=== PATIENT | male | born 1955 | race Caucasian/White ===

== ENCOUNTER 2018-12-21 18:09 | Emergency (ER) | payer MEDICARE, OTHER ==
[2018-12-21] MEDS ORDERED: Famotidine 20 MG/2 ML SDV IVPUSH ONE (18:14)
[2018-12-21] MEDS ORDERED: Sodium Chloride 0.9% 10 ML Syringe FLUSH PRN (18:14)
--- NOTE | 2018-12-21 18:14 | EDM.PDOC ---
ED HPI GENERAL MEDICAL PROBLEM - General Chief Complaint: General Stated Complaint: SOB, left, lower abd pain Time Seen by Provider: 12/21/18 18:14 Source of Information: Reports: Patient, EMS, EMS Notes Reviewed, Old Records ( [facility] EMR. No paper hospital chart available.) History Limitations: Reports: No Limitations - History of Present Illness INITIAL COMMENTS - FREE TEXT/NARRATIVE: The patient was brought to the emergency room via ambulance with basic EMT transport for evaluation of sudden onset progressive dyspnea, nausea, and weakness with additional 5/10 nonspecific left lower quadrant abdominal/side pain with the patient wanting to lie on the floor near his bed secondary to this discomfort. He relates his discomfort secondary to questionable muscle pull when lying down on the floor? He denies any fall, seizure activity, syncope , injury, etc. He has a somewhat historian secondary to his current discomfort and distress. Note that the patient did have a left hemicolectomy on 12/14/18 at the [facility] in [facility] with normal bowel movement earlier this morning. He denies any gross hematuria, colic, or other UTI symptoms. The patient denies any chest pain/pressure, heart flutter, dizziness, orthostasis, orthopnea, diaphoresis, paresthesias, recent decreased exercise tolerance, or any other anginal-type symptoms although the patient was extremely diaphoretic on arrival to this facility. He was also hypoxic with an O2 sat of 73% initially as recorded by the coil wrapper with initial O2 by mask and subsequent reduction of therapy per the patient's request to 4 L/m by nasal cannula prior to arrival. The patient also denies any recent fever, cough, wheezing, etc.. No history of recent headaches, visual changes, diplopia, change in mental status, or other change in neurological status. Onset: Today, Gradual Onset Date: 12/21/18 Onset Time: 12:00 Duration: Constant, Getting Worse Location: Reports: Abdomen. Denies: Head, Face, Neck, Chest, Back, Pelvis, Upper Extremity, Left, Upper Extremity, Right, Lower Extremity, Left, Lower Extremity, Right, Radiates to Quality: Reports: Ache, Stabbing, Throbbing Severity: Moderate Improves with: Reports: None Worsens with: Reports: None Context: Reports: Other (As above). Denies: Sick Contact, Trauma Associated Symptoms: Reports: Nausea/Vomiting, Shortness of Breath. 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: Reports: Oxygen Left Abdominal Pain Score (Numeric/FACES): 5 - Related Data Allergies Allergy/AdvReac Type Severity Reaction Status Date / Time No Known Drug Allergies Allergy Cannot Verified 12/21/18 18:12 Remember Home Meds: Home Meds Cholecalciferol (Vitamin D3) [Vitamin D3] 2,000 unit PO DAILY 12/06/18 [History] Dextroamphetamine [Dextrostat] 5 mg PO ASDIRECTED 12/06/18 [History] Ferrous Sulfate 325 mg PO DAILY 12/06/18 [History] Fish Oil/[place]-3 Fatty Acids [Fish Oil 1,000 MG] 1,000 mg PO BID 12/06/18 [ History] Hydrocodone/Acetaminophen [Hydrocodon-Acetaminophn 10-325] 2 tab PO Q6H PRN 06/16 [History] Insulin Glarg,Human.Rec.Analog [Lantus] 50 unit SUBCUT BEDTIME 12/06/18 [History ] Lisinopril 2.5 mg PO DAILY 12/06/18 [History] NIFEdipine [Nifedipine ER] 30 mg PO DAILY 12/06/18 [History] Potassium Chloride 20 meq PO DAILY 12/06/18 [History] Propranolol HCl [Inderal LA] 160 mg PO DAILY 12/06/18 [History] SUMAtriptan [Imitrex] 25 mg PO DAILY PRN 12/06/18 [History] Simvastatin [Zocor] 40 mg PO BEDTIME 12/06/18 [History] Topiramate [Topiramate ER] 150 mg PO DAILY 12/06/18 [History] Triamterene/Hydrochlorothiazid [Triamterene-HCTZ 37.5-25 MG] 1 tab PO DAILY 06/16 [History] Venlafaxine [Effexor XR] 150 mg PO BEDTIME 12/06/18 [History] metFORMIN [Glucophage] 500 mg PO QID 12/06/18 [History] Past Medical History HEENT History: Reports: Hard of Hearing, Impaired Vision, Other (See Below) Other HEENT History: Patient wears glasses. Cardiovascular History: Reports: Hypertension Respiratory History: Reports: COPD, Intubation, Previous, Sleep Apnea, Other ( See Below). Denies: Intubation, Difficult Other Respiratory History: COPD by chest x-ray Gastrointestinal History: Reports: Colon Polyp, Other (See Below) Other Gastrointestinal History: Colon cancer diagnosed as below Genitourinary History: Reports: None Musculoskeletal History: Reports: Arthritis, Back Pain, Chronic, Fracture, Osteoarthritis Neurological History: Reports: Brain Injury, Concussion, Headaches, Chronic, Head Trauma, Migraines Psychiatric History: Reports: Anxiety, Depression, PTSD Endocrine/Metabolic History: Reports: Diabetes, Type II, Obesity/BMI 30+. Denies: IDDM Hematologic History: Reports: Anemia Oncologic (Cancer) History: Reports: Colon, Lung, Other (See Below) Other Oncologic History: Newly diagnosed left sided colon cancer on 12/14/18 Dermatologic History: Reports: None - Infectious Disease History Infectious Disease History: Reports: None - Past Surgical History Cardiovascular Surgical History: Reports: None Respiratory Surgical History: Reports: Lung Resection GI Surgical History: Reports: Colon, Colonoscopy, Other (See Below) Other GI Surgeries/Procedures: ? Left sided hemicolectomy secondary to colon cancer at the [facility] on 12/14/18 Male Surgical History: Reports: None Endocrine Surgical History: Reports: None Neurological Surgical History: Reports: None Musculoskeletal Surgical History: Reports: Shoulder Surgery Oncologic Surgical History: Reports: Lobectomy Social & Family History - Family History Family Medical History: Noncontributory - Caffeine Use Caffeine Use: Reports: Tea ED ROS GENERAL - Review of Systems Review Of Systems: ROS reveals no pertinent complaints other than HPI. ED EXAM, GENERAL - Physical Exam Exam: See Below Exam Limited By: Other (Patient discomfort and obesity) General Appearance: Alert, Anxious (Moderate), Moderate Distress Eye Exam: Bilateral Eye: EOMI, Normal Inspection (No nystagmus. Patient has glasses with him), PERRL Ears: Normal External Exam, Normal Canal, Hearing Grossly Normal, Normal TMs Nose: Normal Mucosa, No Blood, Clear Rhinorrhea Throat/Mouth: Normal Lips, Normal Teeth (Occasional missing teeth with additional caries but no abscess), Normal Gums, Normal Oropharynx, Normal Voice , No Airway Compromise. No: Dysphagia, Perioral Cyanosis Head: Atraumatic, Normocephalic. No: Facial Swelling, Facial Tenderness, Sinus Tenderness Neck: Normal Inspection, Supple, Non-Tender, Full Range of Motion. No: Carotid Bruit, Lymphadenopathy (L), Lymphadenopathy (R), Thyromegaly Respiratory/Chest: No Accessory Muscle Use, Chest Non-Tender, Respiratory Distress (Mild), Rales (Mild diffuse bilateral rales mostly in the bases ). No : Retractions Cardiovascular: Normal Peripheral Pulses, No Gallop, No JVD, No Murmur, No Rub, Tachycardia (Regular rhythm). No: No Edema (Dependent edema as below) Peripheral Pulses: 2+: Brachial (R), Radial (L), Dorsalis Pedis (L), Dorsalis Pedis (R) GI/Abdominal: Normal Bowel Sounds, No Distention, No Abnormal Bruit, No Mass, Pelvis Stable, Tender (Mild left lower quadrant abdominal pain), Other (Obese. Large midline incision intact with no evidence of dehiscence or local signs of infection). No: Guarding, Rigid, Rebound (Male) Exam: Deferred Rectal (Males) Exam: Deferred Back Exam: Normal Inspection, Full Range of Motion. No: CVA Tenderness (L), CVA Tenderness (R), Muscle Spasm Extremities: Normal Range of Motion, Non-Tender, Normal Capillary Refill, Pedal Edema (+1 bilateral pitting pedal/pretibial edema). No: Shaunna's Sign Neurological: Alert, Oriented, CN II-XII Intact, Normal Cognition, Normal Gait, Normal Reflexes (Negative Babinski's), No Motor/Sensory Deficits Psychiatric: Anxious (Moderate) Skin Exam: No Rash, Diaphoretic, Tattoo(s), Wound/Incision (Abdominal incision as above). No: Ecchymosis, Jaundice, Pallor, Petechiae Lymphatic: No Adenopathy EKG INTERPRETATION EKG Date: 12/21/18 Time: 18:43 Rhythm: Other (Sinus tachycardia) Rate (Beats/Min): 113 [place]: Normal (Neutral cardiac axis) P-Wave: Present QRS: Normal (0.09 seconds) ST-T: Other (Nonspecific ST changes with mild T-wave inversion in leads V1V3, 3 , and aVF) QT: Normal WA/PQ Interval: 0.14 seconds with no delta waves noted. Noisy baseline. Pulmonary hypertension by EKG. Comparison: NA - No Prior EKG EKG Interpretation Comments: 1. Possible anteroinferior cardiac ischemia 2. Sinus tachycardia 3. Short WA interval 4. Pulmonary Hypertension by EKG Course - Vital Signs Last Recorded V/S: Last Vital Signs Temp 36.4 C 12/21/18 18:13 Pulse 119 H 12/21/18 18:45 Resp 30 H 12/21/18 18:45 BP 89/62 L 12/21/18 18:45 Pulse Ox 94 L 12/21/18 18:45 Vital Signs - 24 hr 12/21/18 12/21/18 12/21/18 18:13 18:15 18:30 Temperature [ 36.4 C Oral] Pulse, 110 H 117 H Peripheral [ Left Brachial] Respiratory 40 H 25 H Rate Blood Pressure 123/62 83/54 L [Left Upper Arm ] O2 Sat by Pulse 93 L 94 L Oximetry O2 Sat by Pulse 91 L Oximetry [ Nasal Cannula] O2 Sat by Pulse 81 L Oximetry [Room Air] 12/21/18 12/21/18 12/21/18 18:45 19:45 20:00 Temperature [ Oral] Pulse, 119 H 112 H 109 H Peripheral [ Left Brachial] Respiratory 30 H 29 H Rate Blood Pressure 89/62 L 137/76 [Left Upper Arm ] O2 Sat by Pulse 94 L 91 L 96 Oximetry O2 Sat by Pulse Oximetry [ Nasal Cannula] O2 Sat by Pulse Oximetry [Room Air] 12/21/18 12/21/18 12/21/18 20:15 20:30 20:45 Temperature [ Oral] Pulse, 110 H 110 H 111 H Peripheral [ Left Brachial] Respiratory 30 H 30 H 30 H Rate Blood Pressure 119/67 134/68 [Left Upper Arm ] O2 Sat by Pulse 97 97 Oximetry O2 Sat by Pulse Oximetry [ Nasal Cannula] O2 Sat by Pulse Oximetry [Room Air] 12/21/18 21:15 Temperature [ Oral] Pulse, 112 H Peripheral [ Left Brachial] Respiratory 29 H Rate Blood Pressure [Left Upper Arm ] O2 Sat by Pulse 97 Oximetry O2 Sat by Pulse Oximetry [ Nasal Cannula] O2 Sat by Pulse Oximetry [Room Air] - Orders/Labs/Meds Orders: Active Orders 24 hr Category Date Time Status Cardiac Monitoring [RC] . DIRECTED Care 12/21/18 18:15 Active EKG Documentation Completion [RC] ASDIRECTED Care 12/21/18 18:15 Active Torres Catheter Insertion [Insert Urinary Catheter] [OM. Care 12/21/18 20:45 Ordered PC] Q24H Oxygen Therapy, ED [RC] CONTINUOUS Care 12/21/18 18:15 Active Peripheral IV Care [RC] . DIRECTED Care 12/21/18 18:15 Active Pulse Oximetry [RC] CONTINUOUS Care 12/21/18 18:15 Active Up With Assistance [RC] PFP Care 12/21/18 18:15 Active Urinary Catheter Assessment [RC] ASDIRECTED Care 12/21/18 20:44 Active Vital Signs [RC] PFP Care 12/21/18 18:15 Active Nothing per Oral Now Diet [DIET] Diet 12/21/18 Breakfast Active Abdomen Series w Chest 1V [CR] Routine Exams 12/21/18 18:17 Taken CULTURE BLOOD [BC] Stat Lab 12/21/18 19:40 Received CULTURE BLOOD [BC] Stat Lab 12/21/18 20:37 Received CULTURE URINE [RM] Routine Lab 12/21/18 20:59 Received Sodium Chloride 0.9% [Saline Flush] Med 12/21/18 18:14 Active 10 ml FLUSH ASDIRECTED PRN cefTRIAXone [Rocephin] Med 12/21/18 20:15 Active 2 gm IVPUSH Q24H Blood Culture x2 Reflex Set [OM.PC] Urgent Oth 12/21/18 20:28 Ordered Obtain Past Medical Record [OM.PC] Urgent Oth 12/21/18 18:15 Active Peripheral IV Insertion Adult [OM.PC] Stat Oth 12/21/18 18:15 Ordered Resuscitation Status Stat Resus Stat 12/21/18 18:14 Ordered Medication Orders Ceftriaxone Sodium (Rocephin) 2 gm IVPUSH Q24H KAVON Last Admin: 12/21/18 20:20 Dose: 2 gm Sodium Chloride (Saline Flush) 10 ml FLUSH ASDIRECTED PRN PRN Reason: Keep Vein Open Labs: Laboratory Tests 12/21/18 12/21/18 12/21/18 Range/Units 19:40 19:40 19:40 WBC 15.1 H (4.0-10.2) K/uL RBC 4.39 (4.33-5.41) M/uL Hgb 11.8 L (13.1-16.8) g/dL Hct 37.6 L (39.0-49.0) % MCV 85.6 (84.0-98.0) fL MCH 26.9 L (28.2-33.3) pg MCHC 31.4 L (31.7-36.0) g/dL RDW 15.5 H (11.2-14.1) % Plt Count 575 H (150-350) K/uL Neut % (Auto) 72.9 (45.0-80.0) % Lymph % (Auto) 19.5 (10.0-50.0) % [place] % (Auto) 7.2 (2.0-14.0) % Eos % (Auto) 0.1 (0.0-5.0) % Baso % (Auto) 0.3 (0.0-2.0) % Neut # (Auto) 11.01 H (1.40-7.00) K/uL Lymph # (Auto) 2.95 (0.50-3.50) K/uL [place] # (Auto) 1.09 H (0.00-1.00) K/uL Eos # (Auto) 0.01 (0.00-0.50) K/uL Baso # (Auto) 0.04 (0.00-0.20) K/uL PT 12.8 H (9.5-12.0) SEC INR 1.2 APTT 32.5 H (21.0-31.3) SEC D-Dimer, Quantitative 3230 H (0-400) ng/mL Sodium (136-145) mmol/L Potassium (3.5-5.1) mmol/L Chloride (98-107) mmol/L Carbon Dioxide (21.0-32.0) mmol/L BUN (7-18) mg/dL Creatinine (0.51-1.17) mg/dL Est Cr Clr Drug Dosing mL/min Estimated GFR (MDRD) mL/min Glucose (74-106) mg/dL Lactic Acid (0.4-2.0) mmol/L Uric Acid (2.6-7.2) mg/dL Calcium (8.5-10.1) mg/dL Magnesium (1.8-2.4) mg/dL Total Bilirubin (0.2-1.0) mg/dL AST (15-37) U/L ALT (12-78) U/L Alkaline Phosphatase (46-116) IU/L Creatine Kinase (26-308) U/L Creatine Kinase Index (0.0-2.5) % CK-MB (CK-2) (0.00-3.60) ng/mL Troponin I (0.000-0.056) ng/mL NT-Pro-B Natriuret Pep (0-125) pg/mL Total Protein (6.4-8.2) g/dL Albumin (3.4-5.0) g/dL TSH, Ultra Sensitive (0.358-3.740) mIU/mL Specimen Type Urine Color Urine Appearance Urine pH (5.0-9.0) Ur Specific [place] (1.005-1.030) Urine Protein (NEGATIVE) mg/dL Urine Glucose (UA) (NEGATIVE) mg/dL Urine Ketones (NEGATIVE) mg/dL Urine Occult Blood (NEGATIVE) Urine Nitrite (NEGATIVE) Urine Bilirubin (NEGATIVE) Urine Urobilinogen (0.2-1.0) E.U./dL Ur Leukocyte Esterase (NEGATIVE) Urine RBC /HPF Urine WBC /HPF Ur Epithelial Cells /LPF Urine Bacteria (NONE TO FEW) /HPF Hyaline Casts (NEGATIVE) /LPF 12/21/18 12/21/18 12/21/18 Range/Units 19:40 19:40 20:59 WBC (4.0-10.2) K/uL RBC (4.33-5.41) M/uL Hgb (13.1-16.8) g/dL Hct (39.0-49.0) % MCV (84.0-98.0) fL MCH (28.2-33.3) pg MCHC (31.7-36.0) g/dL RDW (11.2-14.1) % Plt Count (150-350) K/uL Neut % (Auto) (45.0-80.0) % Lymph % (Auto) (10.0-50.0) % [place] % (Auto) (2.0-14.0) % Eos % (Auto) (0.0-5.0) % Baso % (Auto) (0.0-2.0) % Neut # (Auto) (1.40-7.00) K/uL Lymph # (Auto) (0.50-3.50) K/uL [place] # (Auto) (0.00-1.00) K/uL Eos # (Auto) (0.00-0.50) K/uL Baso # (Auto) (0.00-0.20) K/uL PT (9.5-12.0) SEC INR APTT (21.0-31.3) SEC D-Dimer, Quantitative (0-400) ng/mL Sodium 144 (136-145) mmol/L Potassium 3.2 L (3.5-5.1) mmol/L Chloride 107 (98-107) mmol/L Carbon Dioxide 16.8 L (21.0-32.0) mmol/L BUN 29 H (7-18) mg/dL Creatinine 1.17 (0.51-1.17) mg/dL Est Cr Clr Drug Dosing 62.52 mL/min Estimated GFR (MDRD) > 60 mL/min Glucose 105 (74-106) mg/dL Lactic Acid 7.7 H (0.4-2.0) mmol/L Uric Acid 6.5 (2.6-7.2) mg/dL Calcium 10.2 H (8.5-10.1) mg/dL Magnesium 1.4 L (1.8-2.4) mg/dL Total Bilirubin 0.3 (0.2-1.0) mg/dL AST 57 H (15-37) U/L ALT 39 (12-78) U/L Alkaline Phosphatase 83 (46-116) IU/L Creatine Kinase 156 (26-308) U/L Creatine Kinase Index 3.1 H (0.0-2.5) % CK-MB (CK-2) 4.80 H* (0.00-3.60) ng/mL Troponin I 0.016 (0.000-0.056) ng/mL NT-Pro-B Natriuret Pep 7503 H (0-125) pg/mL Total Protein 6.4 (6.4-8.2) g/dL Albumin 1.9 L (3.4-5.0) g/dL TSH, Ultra Sensitive 2.904 (0.358-3.740) mIU/mL Specimen Type Urincath Urine Color Dark yellow Urine Appearance Clear Urine pH 5.5 (5.0-9.0) Ur Specific [place] 1.020 (1.005-1.030) Urine Protein 30 H (NEGATIVE) mg/dL Urine Glucose (UA) Negative (NEGATIVE) mg/dL Urine Ketones Trace H (NEGATIVE) mg/dL Urine Occult Blood Negative (NEGATIVE) Urine Nitrite Negative (NEGATIVE) Urine Bilirubin Small H (NEGATIVE) Urine Urobilinogen 0.2 (0.2-1.0) E.U./dL Ur Leukocyte Esterase Negative (NEGATIVE) Urine RBC 0-5 /HPF Urine WBC 0-5 /HPF Ur Epithelial Cells Few /LPF Urine Bacteria Few (NONE TO FEW) /HPF Hyaline Casts Few H (NEGATIVE) /LPF Blood Cultures 2 were collected. Urine specimen set up for culture and sensitivity. Meds: Medications Generic Name Dose Route Start Last Admin Trade Name Freq PRN Reason Stop Dose Admin Ceftriaxone Sodium 2 gm 12/21/18 20:15 12/21/18 20:20 Rocephin IVPUSH 2 gm Q24H KAVON Administration Sodium Chloride 10 ml 12/21/18 18:14 Saline Flush FLUSH ASDIRECTED PRN Keep Vein Open Discontinued Medications Generic Name Dose Route Start Last Admin Trade Name Freq PRN Reason Stop Dose Admin Famotidine 40 mg 12/21/18 18:14 12/21/18 19:50 Pepcid IVPUSH 12/21/18 18:15 40 mg ONETIME ONE Administration Hydromorphone HCl 1 mg 12/21/18 21:08 12/21/18 21:17 Dilaudid IVPUSH 12/21/18 21:09 1 mg ONETIME ONE Administration Lactated Ringer's 1,000 mls @ 999 mls/hr 12/21/18 20:12 12/21/18 20:27 Ringers, Lactated IV 12/21/18 21:12 999 mls/hr .BOLUS ONE Administration Metronidazole 500 mg/ Premix 100 mls @ 100 mls/hr 12/21/18 20:30 12/21/18 21: 20 IV 12/21/18 21:29 100 mls/hr ONETIME ONE Administration Ondansetron HCl 4 mg 12/21/18 19:15 12/21/18 19:50 Zofran IVPUSH 12/21/18 19:16 4 mg ONETIME ONE Administration Ondansetron HCl 4 mg 12/21/18 21:07 12/21/18 21:16 Zofran IVPUSH 12/21/18 21:08 4 mg ONETIME ONE Administration - Radiology Interpretation Free Text/Narrative:: Bounty Trapper showed sinus tachycardia with heart rate in the 110s with no ectopy or arrhythmia Acute abdominal x-rays shows cardiomegaly, mild centralized CHF, and mild COPD changes with no pulmonary infiltrates or pneumothorax. Moderate diffuse stool however not in the rectal vault. Nonspecific bowel gaseous pattern somewhat increased in nature with no fluid levels, ileus, or definite obstruction. Moderate free air likely secondary to recent open abdominal surgery. Elevated right hemidiaphragm Departure - Departure Time of Disposition: 21:35 Disposition: DC/Tfer to [facility] 02 Condition: Serious Clinical Impression: Obesity determined by physical examination, Hypokalemia, Hypoalbuminemia, Hypomagnesemia, D-dimer, elevated, Hypercalcemia Sepsis Qualifiers: Sepsis type: sepsis due to unspecified organism Qualified Code(s): A41.9 - Sepsis, unspecified organism CHF (congestive heart failure) Qualifiers: Heart failure type: unspecified Heart failure chronicity: unspecified Qualified Code(s): I50.9 - Heart failure, unspecified Colon cancer Qualifiers: Colon location: unspecified part of colon Qualified Code(s): C18.9 - Malignant neoplasm of colon, unspecified COPD (chronic obstructive pulmonary disease) Qualifiers: COPD type: emphysema Emphysema type: panlobular Qualified Code(s): J43.1 - Panlobular emphysema Osteoarthritis Qualifiers: Osteoarthritis location: multiple joints Osteoarthritis type: primary Qualified Code(s): M15.0 - Primary generalized (osteo)arthritis Anemia Qualifiers: Anemia type: unspecified type Qualified Code(s): D64.9 - Anemia, unspecified - Discharge Information *PRESCRIPTION DRUG MONITORING PROGRAM REVIEWED*: Not Applicable *COPY OF PRESCRIPTION DRUG MONITORING REPORT IN PATIENT RAFA: Not Applicable Referrals: PCP,Unknown [Primary Care Provider] - Forms: ED Department Discharge, Interfacility Transfer EMTALA - Problem List & Annotations (1) Sepsis SNOMED Code(s): 39179119 Code(s): A41.9 - SEPSIS, UNSPECIFIED ORGANISM Status: Acute Priority: High Onset Date: 12/21/18 Annotation/Comment:: Severely elevated lactic acid level with clinical evidence of sepsis. Note recent abdominal surgery on . Blood cultures 2 were collected. Urine specimen also collected for culture and sensitivitycatheterized specimen. Patient was treated aggressively in the emergency room including initial 2 g IV push of Rocephin with IV Flagyl to be continued in route. IV lactated Ringer's bolus was also initiated with caution secondary to his CHF. No additional norepinephrine infusion was required with stable vital signs at time of transfer. Initial telephone consultation with the [facility] in [place] with , hospitalist, at 20:25 hours and then at 20:40 hours with no beds available in their facility and authorization for hospital transfer to another facility received from that physician. Subsequent telephone consultation with [facility] in [place] at 20:40 hours with subsequent telephone consultation with Dr. Nascimento, hot mix operator, and Dr. Braswell, general surgeon, at 20:55 hours with both parties agreeing to accept the patient for direct admission. Note that the patient was too obese to perform a planned CTA of the chest to rule out PE and CT of the abdomen and pelvis with these evaluations to be conducted immediately upon patient's arrival to [facility]. No further treatment recommendations given. Note leukocytosis. Qualifiers: Sepsis type: sepsis due to unspecified organism Qualified Code(s): A41.9 - Sepsis, unspecified organism (2) CHF (congestive heart failure) SNOMED Code(s): 06415499 Code(s): I50.9 - HEART FAILURE, UNSPECIFIED Status: Acute Priority: High Onset Date: 12/21/18 Annotation/Comment:: No chest pain or anginal planes despite elevated CK-MB and CK index with normal CK. Only mild change of troponin I, which is still normal, secondary to his CHF. Secondary to his sepsis and borderline hypotension Lasix therapy was not initiated in the emergency room IV fluids initiated as above with caution secondary to his sepsis. Recommend standard rule out PR orders, cardiology consultation, etc. OTC EKG changes consistent with possible developing anteroinferior ischemia. The accepting providers agree with delay of initiation of IV heparin therapy for now secondary to absence of anginal type symptoms and recent surgery as above. Note mild LFTs elevation likely secondary to CHF and possible fatty liver. Qualifiers: Heart failure type: unspecified Heart failure chronicity: unspecified Qualified Code(s): I50.9 - Heart failure, unspecified (3) Anemia SNOMED Code(s): 776646946 Code(s): D64.9 - ANEMIA, UNSPECIFIED Status: Acute Priority: Medium Onset Date: 12/21/18 Annotation/Comment:: No evidence of significant acute GI bleed despite above symptoms and recent surgery as above. Observe closely by accepting providers. Qualifiers: Anemia type: unspecified type Qualified Code(s): D64.9 - Anemia, unspecified (4) COPD (chronic obstructive pulmonary disease) SNOMED Code(s): 56081088 Code(s): J44.9 - CHRONIC OBSTRUCTIVE PULMONARY DISEASE, UNSPECIFIED Status : Chronic Priority: Medium Annotation/Comment:: No recent fever or bronchitic type symptoms. Qualifiers: COPD type: emphysema Emphysema type: panlobular Qualified Code(s): J43.1 - Panlobular emphysema (5) Colon cancer SNOMED Code(s): 820735988 Code(s): C18.9 - MALIGNANT NEOPLASM OF COLON, UNSPECIFIED Status: Acute Priority: High Onset Date: 12/14/18 Annotation/Comment:: Note recent surgery on 12/14/18. Possible secondary postoperative sepsis. CT scan recommended as above. Qualifiers: Colon location: unspecified part of colon Qualified Code(s): C18.9 - Malignant neoplasm of colon, unspecified (6) D-dimer, elevated SNOMED Code(s): 344565033 Code(s): R79.89 - OTHER SPECIFIED ABNORMAL FINDINGS OF BLOOD CHEMISTRY Status: Acute Priority: High Onset Date: 12/21/18 Annotation/Comment:: Possible postoperative PE. CT of the chest recommended as above. (7) Hypoalbuminemia SNOMED Code(s): 039895927 Code(s): E88.09 - OTH DISORDERS OF PLASMA-PROTEIN METABOLISM, NEC Status: Acute Priority: Medium Onset Date: 12/21/18 Annotation/Comment:: Observe for now (8) Hypokalemia SNOMED Code(s): 96903614 Code(s): E87.6 - HYPOKALEMIA Status: Acute Priority: Medium Onset Date : 12/21/18 Annotation/Comment:: IV lactated Ringer's initiated as above. (9) Hypomagnesemia SNOMED Code(s): 553028442 Code(s): E83.42 - HYPOMAGNESEMIA Status: Acute Priority: Medium Onset Date: 12/21/18 Annotation/Comment:: Consider magnesium oxide supplementation. (10) Obesity determined by physical examination SNOMED Code(s): 473620045 Code(s): E66.9 - OBESITY, UNSPECIFIED Status: Acute Priority: High Annotation/Comment:: Obesity affecting further evaluation in this facility as above. (11) Osteoarthritis SNOMED Code(s): 276041076 Code(s): M19.90 - UNSPECIFIED OSTEOARTHRITIS, UNSPECIFIED SITE Status: Chronic Priority: Medium Annotation/Comment:: Stable by history with no recent fall or injury. Qualifiers: Osteoarthritis location: multiple joints Osteoarthritis type: primary Qualified Code(s): M15.0 - Primary generalized (osteo)arthritis (12) Hypercalcemia SNOMED Code(s): 46185243 Code(s): E83.52 - HYPERCALCEMIA Status: Acute Priority: High Onset Date : 12/21/18 Annotation/Comment:: Consider whole body bone scan in light of recent diagnosis of colon cancer to rule out metastases. - Problem List Review Problem List Initiated/Reviewed/Updated: Yes - My Orders Last 24 Hours: My Active Orders 12/21/18 18:14 Sodium Chloride 0.9% [Saline Flush] 10 ml FLUSH ASDIRECTED PRN Resuscitation Status Stat 12/21/18 18:15 Cardiac Monitoring [RC] . DIRECTED EKG Documentation Completion [RC] ASDIRECTED Oxygen Therapy, ED [RC] CONTINUOUS Peripheral IV Care [RC] . DIRECTED Pulse Oximetry [RC] CONTINUOUS Up With Assistance [RC] PFP Vital Signs [RC] PFP Obtain Past Medical Record [OM.PC] Urgent Peripheral IV Insertion Adult [OM.PC] Stat 12/21/18 18:17 Abdomen Series w Chest 1V [CR] Routine 12/21/18 19:40 CULTURE BLOOD [BC] Stat 12/21/18 20:15 cefTRIAXone [Rocephin] 2 gm IVPUSH Q24H 12/21/18 20:28 Blood Culture x2 Reflex Set [OM.PC] Urgent 12/21/18 20:37 CULTURE BLOOD [BC] Stat 12/21/18 20:44 Urinary Catheter Assessment [RC] ASDIRECTED 12/21/18 20:45 Torres Catheter Insertion [Insert Urinary Catheter] [OM.PC] Q24H 12/21/18 20:59 CULTURE URINE [RM] Routine 12/21/18 Breakfast Nothing per Oral Now Diet [DIET] - Assessment/Plan Last 24 Hours: My Active Orders 12/21/18 18:14 Sodium Chloride 0.9% [Saline Flush] 10 ml FLUSH ASDIRECTED PRN Resuscitation Status Stat 12/21/18 18:15 Cardiac Monitoring [RC] . DIRECTED EKG Documentation Completion [RC] ASDIRECTED Oxygen Therapy, ED [RC] CONTINUOUS Peripheral IV Care [RC] . DIRECTED Pulse Oximetry [RC] CONTINUOUS Up With Assistance [RC] PFP Vital Signs [RC] PFP Obtain Past Medical Record [OM.PC] Urgent Peripheral IV Insertion Adult [OM.PC] Stat 12/21/18 18:17 Abdomen Series w Chest 1V [CR] Routine 12/21/18 19:40 CULTURE BLOOD [BC] Stat 12/21/18 20:15 cefTRIAXone [Rocephin] 2 gm IVPUSH Q24H 12/21/18 20:28 Blood Culture x2 Reflex Set [OM.PC] Urgent 12/21/18 20:37 CULTURE BLOOD [BC] Stat 12/21/18 20:44 Urinary Catheter Assessment [RC] ASDIRECTED 12/21/18 20:45 Torres Catheter Insertion [Insert Urinary Catheter] [OM.PC] Q24H 12/21/18 20:59 CULTURE URINE [RM] Routine 12/21/18 Breakfast Nothing per Oral Now Diet [DIET] Assessment:: As above Plan: As above. Extensive precautions were given to the patient, who is in agreement with the treatment plan. Ambulance transfer with kalsominer accompaniment to [facility] in [place] as above. Prognosis extremely guarded with stable vital signs at time of transfer.
[2018-12-21] MEDS ORDERED: Ondansetron 4 MG/2 ML SDV IVPUSH ONE ×2 (19:15→21:07)
[2018-12-21] MEDS ORDERED: Lactated Ringers 1,000 ML IV ONE (20:12)
[2018-12-21 20:15] LABS: CHLORIDE,CL 107 mmol/L (98-107); SODIUM,NA 144 mmol/L (136-145)
[2018-12-21] MEDS ORDERED: cefTRIAXone 2 GM Vial IVPUSH SCH (20:15)
[2018-12-21] MEDS ORDERED: metroNIDAZOLE/Normal Saline 500 MG in Premix Bag 1 BAG IV ONE (20:30)
[2018-12-21] MEDS ORDERED: HYDROmorphone 1 MG/ML Syringe IVPUSH ONE (21:08)
== END 2018-12-21 21:35 ==
LOC: LL.ED 18:09
DX: A41.9 Sepsis, unspecified organism (principal); I11.0 Hypertensive heart disease with heart failure; I50.9 Heart failure, unspecified; C18.2 Malignant neoplasm of ascending colon; E66.9 Obesity, unspecified; E87.6 Hypokalemia; E88.09 Other disorders of plasma-protein metabolism, not elsewhere classified; E83.42 Hypomagnesemia; R79.1 Abnormal coagulation profile; E83.52 Hypercalcemia; J43.1 Panlobular emphysema; M15.0 Primary generalized (osteo)arthritis; F41.9 Anxiety disorder, unspecified; F32.9 Major depressive disorder, single episode, unspecified; E11.9 Type 2 diabetes mellitus without complications; Z79.899 Other long term (current) drug therapy; Z79.4 Long term (current) use of insulin; Z79.84 Long term (current) use of oral hypoglycemic drugs
CPT/HCPCS: 36415; 51702; 74022; 80053; 81001; 82550; 82553; 83605; 83735; 83880; 84443; 84484; 84550; 85025; 85379; 85610; 85730; 87040; 87086; 93005; 96361; 96374; 96375; 96376; 99285-25; J0696; J1170; J2405; J3490; J7120